=== PATIENT | female | born 1945 | race Two or more races ===

== ENCOUNTER 2018-10-31 07:00 | Inpatient (IN) | payer OTHER ==
[~2018-10-31] VITALS: Ht 165.1 cm; Wt 85.3 kg
[2018-10-31] MEDS ORDERED: SYNTHROID75 MCG PO (08:10)
[2018-10-31] MEDS ORDERED: ASA81 MG PO (08:11)
[2018-10-31] MEDS ORDERED: CRESTOR5 MG PO (08:11)
[2018-10-31] MEDS ORDERED: COZAAR100 MG PO (08:11)
[2018-10-31] MEDS ORDERED: METFORMIN HCL500 MG PO (08:11)
[2018-10-31] MEDS ORDERED: NORVASC10 MG PO (08:11)
[2018-11-07] MEDS ORDERED: GLIMEPIRIDE4 MG PO (09:11)
[2018-11-14] MEDS ORDERED: PERCOCET 5-3251 EACH PO (11:50)
[2018-11-14] MEDS ORDERED: DOCUSATE SODIU100 MG PO (11:50)
[2018-11-14] MEDS ORDERED: CLONAZEPAM0.5 MG PO (11:50)
== END 2018-11-15 13:26 | disposition home or self-care (01) | DRG 472 ==
LOC: SURH 11-13 07:00 → O/R 11-14 05:40 → SURG 11-14 05:40 → SURH 11-14 07:00 → SURG 11-14 10:07
PROVIDERS: ADMIT Orthopaedic Surgery Orthopaedic Surgery of the Spine
PROC: 0RT30ZZ Resection of Cervical Vertebral Disc, Open Approach (ICD-10-PCS; 2018-11-14)
PROC: 07DS0ZZ Extraction of Vertebral Bone Marrow, Open Approach (ICD-10-PCS; 2018-11-14)
PROC: 0RG10A0 Fusion of Cervical Vertebral Joint with Interbody Fusion Device, Anterior Approach, Anterior Column, Open Approach (ICD-10-PCS; principal; 2018-11-14 07:00)
DX: M50.01 Cervical disc disorder with myelopathy, high cervical region (principal); M47.12 Other spondylosis with myelopathy, cervical region; I10 Essential (primary) hypertension; E03.8 Other specified hypothyroidism

== ENCOUNTER 2019-04-09 11:19 | Emergency (ER) | payer OTHER ==
[~2019-04-09] VITALS: Ht 165.1 cm; Wt 86.2 kg
[~2019-04-09 11:19] MED LIST: ASA81 MG PO; CLONAZEPAM0.5 MG PO; COZAAR100 MG PO; CRESTOR5 MG PO; DOCUSATE SODIU100 MG PO; GLIMEPIRIDE4 MG PO; METFORMIN HCL500 MG PO; NORVASC10 MG PO; PERCOCET 5-3251 EACH PO; SYNTHROID75 MCG PO
[2019-04-09] MEDS ORDERED: NORVASC5 MG (11:43)
[2019-04-09] MEDS ORDERED: SYNTHROID88 MCG (11:43)
== END 2019-04-09 19:49 | disposition home or self-care (01) ==
LOC: ER 11:19 → CPU-OBS 11:21 → ER 19:49
DX: M94.0 Chondrocostal junction syndrome [Tietze] (principal); R07.89 Other chest pain

== ENCOUNTER 2019-09-30 17:45 | Emergency (ER) | payer OTHER ==
[~2019-09-30] VITALS: Ht 162.6 cm; Wt 83.5 kg
[~2019-09-30 17:45] MED LIST changes: +NORVASC5 MG; +SYNTHROID88 MCG
[2019-09-30] MEDS ORDERED: ZYLOPRIM100 M1 PO (18:11)
[2019-09-30] MEDS ORDERED: ATACAND32 MG PO (18:11)
== END 2019-09-30 22:42 | disposition home or self-care (01) ==
LOC: ER 17:45
DX: N20.0 Calculus of kidney (principal); R10.12 Left upper quadrant pain

== ENCOUNTER 2020-12-07 16:31 | Emergency (ER) | payer OTHER ==
[~2020-12-07] VITALS: Ht 157.5 cm; Wt 86.2 kg
[~2020-12-07 16:31] MED LIST changes: +ATACAND32 MG PO; +ZYLOPRIM100 M1 PO
== END 2020-12-07 18:21 | disposition home or self-care (01) ==
LOC: ER 16:31
DX: M25.511 Pain in right shoulder (principal)

== ENCOUNTER 2021-12-15 12:43 | Emergency (ER) | payer OTHER ==
[~2021-12-15] VITALS: Ht 165.1 cm; Wt 84.4 kg
== END 2021-12-15 14:33 | disposition home or self-care (01) ==
LOC: ER 12:43
DX: E11.649 Type 2 diabetes mellitus with hypoglycemia without coma (principal); I10 Essential (primary) hypertension; Z79.84 Long term (current) use of oral hypoglycemic drugs; Z88.0 Allergy status to penicillin